=== PATIENT | female | born 1975 | race Caucasian/White ===

== ENCOUNTER → 2018-05-05 | Outpatient (CLI) | payer BC ==
--- NOTE | 2018-05-05 16:48 | XR ---
EXAMINATION TYPE: XR Hip Complete LT DATE OF EXAM: 05/05/2018 CLINICAL HISTORY: Hip pain for 2 weeks after injury. TECHNIQUE: AP and frogleg views of the left hip are obtained. COMPARISON: None. FINDINGS: There is no acute fracture/dislocation evident in the left hip. The joint space in the le ft hip appears within normal limits. The overlying soft tissue appears unremarkable. IMPRESSION: There is no acute fracture or dislocation in the left hip.
== END | disposition home or self-care (01) ==
LOC: RADXRYALE 16:16
PROVIDERS: ATTEND Physician Assistant Medical
DX: M25.552 Pain in left hip (principal)
CPT/HCPCS: 73502

== ENCOUNTER → 2019-11-25 | Outpatient (CLI) | payer BC ==
--- NOTE | 2019-11-25 15:27 | XR ---
EXAMINATION TYPE: XR foot complete RT DATE OF EXAM: 11/25/2019 CLINICAL HISTORY: Pain and swelling of the dorsal right foot TECHNIQUE: Frontal, lateral, and oblique images of the right foot are obtained. COMPARISON: None FINDINGS: There is no acute fracture/dislocation evident in the right foot. Postsurgical changes se en of the right first distal metatarsal head with medial osteotomy defects and single cortical screw. The joint spaces in the right foot appear within normal limits. The overlying soft tissue appears u nremarkable. IMPRESSION: There is no acute fracture or dislocation in the right foot.
== END ==
LOC: RADXRYALE 14:07
PROVIDERS: ATTEND Physician Assistant
DX: M79.671 Pain in right foot (principal)

== ENCOUNTER → 2020-03-12 | Outpatient (CLI) | payer BC ==
--- NOTE | 2020-03-12 16:09 | XR ---
EXAMINATION TYPE: XR knee complete RT DATE OF EXAM: 03/12/2020 CLINICAL HISTORY: Hyperextension injury with pain. TECHNIQUE: Three views of the right knee are obtained. COMPARISON: None. FINDINGS: There is no acute fracture/dislocation evident in right knee. The tri-compartment joint s paces appear within normal limits. The overlying soft tissue appears unremarkable. IMPRESSION: There is no acute fracture or dislocation in the right knee.
== END | disposition home or self-care (01) ==
LOC: RADXRYALE 15:32
PROVIDERS: ATTEND Physician Assistant Medical
DX: M25.561 Pain in right knee (principal)

== ENCOUNTER → 2021-01-21 | Outpatient (CLI) | payer BC ==
--- NOTE | 2021-01-21 11:42 | MR ---
MRI right foot history: Pain and swelling, postsurgical Altered planar multisequence and postcontrast images obtained through the right foot. Correlation to plain film from outside institution 12/31/2020, only a frontal view is submitted and also prior exam da jamel 11/25/2019. There is susceptibility artifact at the level of the first metatarsal due to patient's surgery. There is overlying skin marker at the site of patient's swelling. Within the soft tissues immediately ante rior to the marker there is a focal area of decreased signal which may correspond to the head of the patient's indwelling screw. There is no abnormal fluid collection evident. Bone marrow signal is thou ght to be maintained. Alignment and joint spaces are within normal limits. IMPRESSION: The head of the patient screw in the first metatarsal is likely within the subcutaneous s oft tissues, correlate with plain film. Unclear as to whether this correlates with the patient's palp able abnormality.
== END | disposition home or self-care (01) ==
LOC: RADMRIMAIN 09:05
PROVIDERS: ATTEND Podiatrist Foot & Ankle Surgery
DX: M79.671 Pain in right foot (principal)
CPT/HCPCS: 73719; A9585

== ENCOUNTER → 2021-06-04 | Outpatient (CLI) | payer BC ==
--- NOTE | 2021-06-04 10:20 | XR ---
EXAMINATION TYPE: XR chest 2V DATE OF EXAM: 06/04/2021 COMPARISON: NONE TECHNIQUE: PA and lateral views submitted. HISTORY: Cough FINDINGS: The lungs are clear and there is no pneumothorax, pleural effusion, or focal pneumonia. Heart size normal. No overt failure. Degenerative changes of the spine. IMPRESSION: 1. No acute process.
== END | disposition home or self-care (01) ==
LOC: RADXRYALE 10:02
PROVIDERS: ATTEND Physician Assistant Medical
DX: J68.0 Bronchitis and pneumonitis due to chemicals, gases, fumes and vapors (principal)
CPT/HCPCS: 71046

== ENCOUNTER → 2021-07-19 | Outpatient (CLI) | payer BC ==
--- NOTE | 2021-07-22 08:57 | MM ---
Reason for exam: clinical finding. Last mammogram was performed 3 years and 1 month ago. History: Patient is postmenopausal. Took hormonal contraceptives for 3 years. Physical Findings: Nurse did not find any significant physical abnormalities on exam. MG 3D Diag Mammo W/Cad NAGA Bilateral CC and MLO view(s) were taken. Prior study comparison: July 01, 2018, bilateral MG screening mammo w CAD. July 05, 2013, [facility] DIGITAL RIGHT MAMMOGRAM w/CAD. The breast tissue is heterogeneously dense. This may lower the sensitivity of mammography. There is no discrete abnormality including area of concern. No significant new findings when compared with previous films. These results were verbally communicated with the patient and result sheet given to the patient on 07/19/21. ASSESSMENT: Incomplete: need additional imaging evaluation, BI-RAD 0 RECOMMENDATION: Ultrasound of the right breast. Manage patient on a clinical basis.
--- NOTE | 2021-07-22 08:58 | USB ---
Reason for exam: additional evaluation requested from abnormal screening. History: Patient is postmenopausal. Took hormonal contraceptives for 3 years. US Breast Axilla RT Right breast axilla ultrasound demonstrates no significant abnormality. Right axilla echogenic nodes noted. These results were verbally communicated with the patient and result sheet given to the patient on 07/19/21. ASSESSMENT: Negative, BI-RAD 1 RECOMMENDATION: Routine screening mammogram of both breasts in 1 year. Manage patient on a clinical basis.
== END | disposition home or self-care (01) ==
LOC: RADMAMWWP 14:19
PROVIDERS: ATTEND Obstetrics & Gynecology
DX: R92.8 Other abnormal and inconclusive findings on diagnostic imaging of breast (principal)
CPT/HCPCS: 77062; 77066

== ENCOUNTER → 2023-02-19 | Outpatient (CLI) | payer BC ==
--- NOTE | 2023-02-19 11:00 | XR ---
EXAMINATION TYPE: XR Hip Complete LT DATE OF EXAM: 02/19/2023 COMPARISON: NONE HISTORY: LT HIP PAIN TECHNIQUE: 2 views submitted FINDINGS: There is no evidence of erosive change or acute fracture. IMPRESSION: 1. No evidence of acute fracture or dislocation.
== END | disposition home or self-care (01) ==
LOC: RADXRYALE 09:37
PROVIDERS: ATTEND Physician Assistant
DX: M25.552 Pain in left hip (principal)
CPT/HCPCS: 73502

== ENCOUNTER → 2024-07-22 | Outpatient (CLI) | payer BC ==
--- NOTE | 2024-07-22 12:35 | XR ---
EXAMINATION TYPE: XR Hip Complete LT DATE OF EXAM: 07/22/2024 COMPARISON: 02/19/2023 HISTORY: Left hip pain TECHNIQUE: 2 view left hip FINDINGS: Femoral head articular is within the acetabulum. Joint space is preserved. No acute fractur e or dislocation evident. Findings are stable from comparison. Follow up exams can be performed 7-10 days from acute trauma for continued pain. IMPRESSION: 1. No Acute osseous abnormality left hip [facility] Mandie Morgan, , 07/22/2024 12:32 PM
== END | disposition home or self-care (01) ==
LOC: RADXRYALE 08:48
PROVIDERS: ATTEND Physician Assistant
DX: M25.552 Pain in left hip (principal)
CPT/HCPCS: 73502

== ENCOUNTER → 2025-01-20 | Outpatient (CLI) | payer BC ==
--- NOTE | 2025-01-20 11:25 | XR ---
EXAMINATION TYPE: XR foot complete RT DATE OF EXAM: 01/20/2025 CLINICAL INDICATION: Female, 49 years old with history of [id number] RT FOOT PAIN, pain TECHNIQUE: Frontal, lateral, and oblique images of the right foot are obtained. COMPARISON: Right foot x-ray November 25, 2019 FINDINGS: There is no acute fracture/dislocation evident in the right foot. Interval removal of the fixating screw distal first metatarsal. Alignment is stable after surgical correction . Remainder mack nt spaces are within normal limits. Overlying soft tissues are unremarkable. IMPRESSION: As above. [facility], , 01/20/2025 11:23 AM
== END | disposition home or self-care (01) ==
LOC: RADXRYALE 08:48
PROVIDERS: ATTEND Physician Assistant
DX: M79.671 Pain in right foot (principal)